=== PATIENT | female | born 1985 | race Caucasian/White ===

== ENCOUNTER 2020-06-06 10:50 | Outpatient (CLI) | payer BC, SELFPAY ==
--- NOTE | ~2020-06-06 | US_ITS ---
EXAMINATION: US soft tissue UE LT DATE: 06/06/2020 11:21 INDICATION: Left upper arm implant. TECHNIQUE: Multiple grayscale and Doppler ultrasound images of the left upper arm were obtained. COMPARISON: None FINDINGS: There is a subcutaneous foreign body in the left upper arm at the level of the midhumerus. The skin was marked. IMPRESSION: 1. Subcutaneous foreign body in the left upper arm. The skin was marked. Reviewed, dictated and finalized at location A.
== END 2020-06-06 10:51 | disposition home or self-care (01) ==
PROVIDERS: PCP Family Medicine; Visit Provider Student in an Organized Health Care Education/Training Program
DX: M79.5 Residual foreign body in soft tissue (principal)
CPT/HCPCS: 76882